=== PATIENT | female | born 1960 | race Caucasian/White ===

== ENCOUNTER 2019-01-22 03:52 | Inpatient (IN) ==
--- NOTE | 2019-01-17 08:39 | EKG Report ---
Test Performed on : 01/17/2019 08:32:46 AM Test Reason : PAT Blood Pressure : / mmHG Vent. Rate : 079 BPM Atrial Rate : 079 BPM P-R Int : 158 ms QRS Dur : 082 ms QT Int : 362 ms P-R-T Axes : 045 046 041 degrees QTc Int : 415 ms Normal sinus rhythm. Possible Left atrial enlargement Borderline ECG No previous ECGs available Confirmed by Kendra GIL, Sawyer Sotelo ([id number]) on 01/17/2019 8:50:17 AM
[2019-01-17 09:01] LABS: URINE SOURCE CLEAN CATCH
[2019-01-17 09:44] LABS: BASO% 0.7 % (0.0-0.8); EOS# 0.24 X1000 (0.0-0.7); EOS% 1.7 % (0.0-10.0); HEMATOCRIT 46.7 % (37.0-47.0); HEMOGLOBIN 15.8 g/dL (12.0-16.0); IMM GRAN# 0.05 X1000 (0.0-0.04); IMM GRAN% 0.4 % (0.0-0.5); LYMPH# 6.27 X1000 (1.2-3.4); LYMPH% 44.2 % (20.5-51.1); MCH 32.1 PG (27-31); MCHC 33.8 g/dL (33-37); MCV 94.9 FL (81-99); MONO# 0.88 X1000 (0.11-0.59); MONO% 6.2 % (1.7-9.3); MPV 9.6 FL (7.4-10.4); NEUT# 6.64 X1000 (1.4-6.5); NEUT% 46.8 % (42.2-75.2); PLT 331 X1000 (130-400); RBC 4.92 XMIL (4.2-5.4); RDW 13.8 % (11.5-14.5); WBC 14.18 X1000 (4.8-10.8)
[2019-01-17 09:49] LABS: BILIRUBIN URINE NEGATIVE (NEGATIVE); BLOOD URINE TRACE (NEGATIVE); COLOR STRAW; GLUCOSE URINE NEGATIVE (NEGATIVE); KETONE URINE NEGATIVE (NEGATIVE); LEUKOCYTES URINE NEGATIVE (NEGATIVE); NITRITE URINE NEGATIVE (NEGATIVE); PH URINE 6.5; PROTEIN URINE NEGATIVE (NEGATIVE); SP GRAVITY URINE 1.008; TURBIDITY URINE CLEAR (CLEAR); UROBILINOGEN URINE NORMAL (NORMAL)
[2019-01-17 09:50] LABS: UR EPITHELIAL CELLS <10 /HPF (<10); URINE BACTERIA NEGATIVE /HPF; URINE RBC <10 /HPF (<10); URINE WBC <10 /HPF (<10)
[2019-01-17 09:54] LABS: INR 0.97
[2019-01-17 09:55] LABS: PTT 28.2 Seconds (22.3-41.8)
[2019-01-17 10:09] LABS: HEMOGLOBIN A1C 5.8 % (4.8-6.0)
[2019-01-17 10:16] LABS: AGAP 16; ALBUMIN 4.8 g/dL (3.5-5.0); BUN 13 mg/dL (8-22); CALCIUM 9.3 mg/dL (8.8-10.2); CHLORIDE 98 mmol/L (98-107); COSMO 279; CREATININE 0.8 mg/dL (0.5-0.9); ESTIMATED GFR > 60; GLUCOSE 96 mg/dL (70-104); POTASSIUM 3.9 mmol/L (3.5-5.1); SODIUM 140 mmol/L (136-145); TCO2 26 mmol/L (25-35)
[2019-01-22] MEDS ORDERED: FENTANYL ONE (07:42)
[2019-01-22] MEDS ORDERED: DIPRIVAN 1% ONE ×2 (07:42→12:54)
[2019-01-22] MEDS ORDERED: VERSED ONE (07:42)
[2019-01-22] MEDS ORDERED: COLACE ONE (08:19)
[2019-01-22] MEDS ORDERED: CELEBREX ONE (08:20)
[2019-01-22] MEDS ORDERED: REGLAN ONE (08:20)
[2019-01-22] MEDS ORDERED: LR 1,000 ML ONE (08:20)
[2019-01-22] MEDS ORDERED: LYRICA ONE (08:20)
[2019-01-22] MEDS ORDERED: KEFZOL 1 GM/D5W 2 GM/100 ML IVPB ONE (08:20)
[2019-01-22] MEDS ORDERED: PEPCID ONE (08:20)
[2019-01-22] MEDS ORDERED: DURAMORPH ONE (09:17)
[2019-01-22] MEDS ORDERED: MARCAINE 0.25% PF ONE (09:17)
[2019-01-22] MEDS ORDERED: TORADOL ONE (09:17)
[2019-01-22] MEDS ORDERED: CYKLOKAPRON 1,000 MG/NS 1,000 MG/100 ML IVPB ONE (09:18)
[2019-01-22] MEDS ORDERED: NEOSPORIN G.U. IRRIGANT ONE (09:18)
[2019-01-22] MEDS ORDERED: SODIUM CHLORIDE 0.9% ONE (09:18)
[2019-01-22] MEDS ORDERED: EXPAREL 1.3% ONE (09:18)
[2019-01-22] MEDS ORDERED: DECADRON ONE (11:20)
[2019-01-22] MEDS ORDERED: ROBINUL ONE (11:20)
[2019-01-22] MEDS ORDERED: OFIRMEV 1000 MG/ISOTONIC SOLN 1,000 MG/100 ML BOTTLE ONE (11:20)
[2019-01-22] MEDS ORDERED: ZOFRAN ONE (11:20)
[2019-01-22] MEDS ORDERED: NS 1,000 ML ONE (14:26)
[2019-01-22 14:38] LABS: URINE SOURCE CATH
[2019-01-22 14:44] LABS: BILIRUBIN URINE NEGATIVE (NEGATIVE); BLOOD URINE TRACE-LYSED (NEGATIVE); CLARITY CLEAR (CLEAR); COLOR YELLOW; GLUCOSE URINE NEGATIVE (NEGATIVE); KETONE URINE NEGATIVE (NEGATIVE); LEUKOCYTES URINE NEGATIVE (NEGATIVE); NITRITE URINE NEGATIVE (NEGATIVE); PROTEIN URINE NEGATIVE (NEGATIVE); SP GRAVITY URINE 1.025; UROBILINOGEN URINE 0.2 EU/dL (0.2-1.0)
[2019-01-22 15:00] LABS: URINE BACTERIA NEGATIVE /HFP; URINE EPITHELIAL CELLS <10 /HPF (<10); URINE RBC <10 /HPF (<10); URINE WBC <10 /HPF (<10)
[2019-01-22] MEDS ORDERED: ZOFRAN ODT PO PRN (15:45)
[2019-01-22] MEDS ORDERED: MORPHINE IV PRN ×3 (15:45)
[2019-01-22] MEDS ORDERED: ZOFRAN IV PRN (15:45)
[2019-01-22] MEDS ORDERED: MILK OF MAGNESIA PO PRN (15:45)
[2019-01-22] MEDS ORDERED: OXY IR PO PRN ×2 (15:45)
[2019-01-22] MEDS: TYLENOL PO SCH ×2 (16:46→22:34)
[2019-01-22] MEDS: ULTRAM PO SCH ×2 (16:51→22:34)
[2019-01-22] MEDS: NS 1,000 ML IV SCH (16:58)
[2019-01-22] MEDS ORDERED: CYKLOKAPRON 1,000 MG in NS 100 ML IV ONE (17:00)
--- NOTE | 2019-01-22 18:35 | OPERATIVE NOTE ---
PROCEDURE DATE: 01/22/2019 PREOP DIAGNOSIS: Left hip degenerative joint disease. POSTOP DIAGNOSIS: Left hip degenerative joint disease. PROCEDURE PERFORMED: Left anterior total hip arthroplasty. ANESTHESIA: General. SURGEON: Bran Morrell MD. ASSISTANTS: RU Mayfield, was present throughout the case. His assistance was necessary for successful completion of case. BLOOD LOSS: Minimal. DRAINS: Hemovac x1. DESCRIPTION OF PROCEDURE: The patient was brought to the operative suite and placed in supine position. After successful administration of spinal anesthesia, the patient was placed on the OSI table in the usual position for left hip. The left hip was then prepped and draped in usual sterile fashion. A longitudinal incision was made beginning 3 cm distal and 3 cm lateral to the anterior superior iliac spine, extending distally and slightly laterally 8 cm dissected sharply through skin and subcutaneous tissue down the tensor fascia. Tensor fascia was incised and dissected bluntly down deep tensor fascia, deep tensor fascia was incised and circumflex vessels electrocauterized exposing the anterior capsule. T capsulotomy was performed exposing the femoral neck. Femoral neck cut was made with oscillating saw. The femoral head was removed with power corkscrew. The labrum was resected. The acetabulum was serially reamed to 52 to accept 52 cup. The 52 cup was then driven into place in the proper amount inclination and anteversion. Two 6.5 cancellous screws were placed 1 superiorly that was a 35 mm and 1 posterior superiorly that was 25 mm. The polyethylene liner was then locked onto the shell. Attention was directed to the femur. The femur was externally rotated, extended, adducted and elevated out of the wound with the hook on the OSI bed, the lateral neck was rongeured, the canal serially broached to a size 8, a size 8 high offset neutral neck length was trialed found be excellent leg length, did fill stem offset and stability the hip. The trial was then removed. The definitive stem was seated on the femur the head and then the ceramic head was seated onto the Sinclair taper and the hip was again reduced, it was again found to be in excellent position. The hip was copiously irrigated with normal saline containing irrigant and Vashe irrigation. A drain was placed deep to the tensor fascia and buried around the stem neck. The anterior capsule was repaired with 0 V-Loc. The tensor fascia was closed with 0 V-Loc and then the skin edge approximated with 2-0 Vicryl, 4-0 Monocryl and a Prineo dressing. A sterile dressing was applied. The patient tolerated the procedure well without complication. At the end procedure all counts correct x2. The patient was transferred to the recovery room stable condition. cc: Bran Morrell MD
[2019-01-22] MEDS: KEFZOL 2 GM/D5W 2 GM/50 ML IVPB IV SCH (19:01)
[2019-01-22] MEDS ORDERED: MOBIC PO SCH (21:00)
[2019-01-22] MEDS ORDERED: ZYRTEC PO SCH (21:00)
[2019-01-22] MEDS ORDERED: PAXIL PO SCH (21:00)
[2019-01-22] MEDS: LYRICA PO SCH (22:32)
[2019-01-22] MEDS: PERIDEX MT SCH (22:32)
[2019-01-22] MEDS: COLACE PO SCH (22:33)
[2019-01-23] MEDS: KEFZOL 2 GM/D5W 2 GM/50 ML IVPB IV SCH (02:38)
[2019-01-23] MEDS: ULTRAM PO SCH ×2 (05:54→14:43)
[2019-01-23] MEDS: TYLENOL PO SCH ×2 (05:56→14:42)
[2019-01-23] MEDS: NS 1,000 ML IV SCH (05:56)
[2019-01-23] MEDS ORDERED: XARELTO PO SCH (06:00)
[2019-01-23 06:43] LABS: AGAP 11; BUN 12 mg/dL (8-22); CALCIUM 7.5 mg/dL (8.8-10.2); CHLORIDE 106 mmol/L (98-107); COSMO 285; CREATININE 0.6 mg/dL (0.5-0.9); ESTIMATED GFR > 60; GLUCOSE 168 mg/dL (70-104); POTASSIUM 3.9 mmol/L (3.5-5.1); SODIUM 141 mmol/L (136-145); TCO2 24 mmol/L (25-35)
[2019-01-23 06:44] LABS: HEMATOCRIT 34.2 % (37.0-47.0); HEMOGLOBIN 11.3 g/dL (12.0-16.0)
[2019-01-23] MEDS ORDERED: DECADRON IV ONE (09:00)
[2019-01-23] MEDS ORDERED: MAXZIDE-25 PO SCH (09:00)
[2019-01-23] MEDS ORDERED: MOBIC PO SCH (09:00)
[2019-01-23] MEDS ORDERED: PEPCID PO SCH (09:00)
[2019-01-23] MEDS: PERIDEX MT SCH (10:54)
[2019-01-23] MEDS: COLACE PO SCH (10:54)
[2019-01-23] MEDS: LYRICA PO SCH (10:55)
[2019-01-23 12:06] VITALS: BP 109/56
--- NOTE | 2019-01-24 06:15 | DISCHARGE SUMMARY ---
ADMISSION DATE: 01/22/2019 DISCHARGE DATE: 01/23/2019 DISCHARGE DIAGNOSIS: Left hip degenerative joint disease status post left anterior total hip arthroplasty. DISCHARGE MEDICATIONS: See discharge medication list. DISPOSITION: The patient discharged home with home health physical therapy. Instructed to return for any signs of infection or deep venous thrombosis. Instructed to return to see Dr. Morrell next . Instructed in wound care and home health physical therapy. HOSPITAL COURSE: The day of admission patient underwent a left anterior total hip arthroplasty. Her postoperative course was unremarkable. At discharge, she is afebrile, tolerating regular diet. Ambulating with physical therapy. Her wound is clean, dry, and intact without sign of infection or deep venous thrombosis. Her hematocrit is stable at 34%. She is discharged to home in stable condition, and instructed to follow up as described above. cc: Bran Morrell MD [facility]
== END 2019-01-23 14:51 | disposition home health service (06) | DRG 470 ==
LOC: SURHOLD 03:52 → 4N 11:07
PROVIDERS: ADMIT Orthopaedic Surgery; ATTEND Orthopaedic Surgery